=== PATIENT | male | born 1985 ===

== ENCOUNTER → 2018-10-07 | Outpatient (REF) | payer OTHER | LOC: ZZSENDIN 11:53 | PROVIDERS: ATTEND Orthopaedic Surgery Hand Surgery | DX: L08.89 Other specified local infections of the skin and subcutaneous tissue (principal) ==

== ENCOUNTER → 2018-10-07 | Outpatient (REF) | payer OTHER | LOC: ZZSENDIN 10:53 | PROVIDERS: ATTEND Orthopaedic Surgery Hand Surgery | DX: L08.89 Other specified local infections of the skin and subcutaneous tissue (principal) | CPT/HCPCS: 87070; 87073; 88304 ==